=== PATIENT | female | born 1985 | race Caucasian/White ===

== ENCOUNTER 2017-01-27 13:35 | Emergency (ER) | payer SELFPAY ==
[~2017-01-27] VITALS: Ht 167.6 cm; Wt 59.0 kg
[2017-01-27] MEDS ORDERED: MOTRIN800 MG PO (14:33)
[2017-01-27] MEDS ORDERED: TRAMADOL HYDROC50 MG PO (14:33)
[2017-01-27 14:40] VITALS: BP 131/88
== END 2017-01-27 14:40 | disposition home or self-care (01) | DRG 563 ==
LOC: ED 13:35
DX: S53.431A Radial collateral ligament sprain of right elbow, initial encounter (principal); M25.521 Pain in right elbow; M54.2 Cervicalgia; Y04.2XXA Assault by strike against or bumped into by another person, initial encounter; Y93.9 Activity, unspecified; Y92.89 Other specified places as the place of occurrence of the external cause

== ENCOUNTER 2018-05-11 15:32 | Emergency (ER) | payer SELFPAY ==
[~2018-05-11] VITALS: Ht 167.6 cm; Wt 56.8 kg
[~2018-05-11 15:32] MED LIST: MOTRIN800 MG PO; TRAMADOL HYDROC50 MG PO
[2018-05-11] MEDS ORDERED: AMITRIPTYLIN25 MG PO (15:48)
[2018-05-11] MEDS ORDERED: DOXYCYCL HYC100 MG PO (17:13)
[2018-05-11] MEDS ORDERED: TORADOL PO (17:15)
[2018-05-11 17:17] VITALS: BP 129/74
== END 2018-05-11 17:17 | disposition home or self-care (01) | DRG 605 ==
LOC: ED 15:32
DX: S60.371A Other superficial bite of right thumb, initial encounter (principal); F43.10 Post-traumatic stress disorder, unspecified; F17.210 Nicotine dependence, cigarettes, uncomplicated; W54.0XXA Bitten by dog, initial encounter; Y92.009 Unspecified place in unspecified non-institutional (private) residence as the place of occurrence of the external cause